=== PATIENT | female | born 1985 | race Caucasian/White ===

== ENCOUNTER 2021-12-12 09:01 | Day surgery (SDC) | payer OTHER, SELFPAY ==
[2021-12-05 15:18] VITALS: BMI 24.5
--- NOTE | 2021-12-11 09:54 | HO.ANESPROP2 ---
Documented by User: Richelle Castro NP 12/11/21 09:55 HPI - Anesthesia Eval Consult details Narrative: 36yo F for Left Lateral and medial Eye Muscle rectus Resection,left inferior oblique Medically cleared [facility] Past Medical History Medical History (Updated 12/05/21 @ 14:45 by Yamile Sebastian, RN) Asthma Chronic right maxillary sinusitis History of herpes genitalis History of syncope Horseshoe kidney Renal calculus Surgical History Surgical History (Updated 12/05/21 @ 14:45 by Yamile Sebastian, RN) History of bilateral salpingectomy History of shoulder surgery Social History Social History Patient Tobacco Use Status: Never used Tobacco Use of substances other than those prescribed or required for medical reasons: No Are you DNR?: No Advance Directives: No Advance Directives Information Provided: Yes Recently lost weight without trying: No Nutrition Risks: No Nutritional Risk Meds Allergies Allergy/AdvReac Type Severity Reaction Status Date / Time No Known Allergies Allergy Verified 12/05/21 14:46 Home Medications Medication Instructions Recorded Confirmed Last Taken Type No Known Home Meds 12/05/21 12/05/21 Unknown History Exam Exam Date and Time: December 11, 2021 0954 Height,Weight and Vital Signs: Height 5 ft 4 in Weight 64.864 kg Assessment and Plan Assessment Anesthesia Assessment: Chart Reviewed Documented by User: Eliza Odonnell MD 12/12/21 13:48 [facility] Past Medical History Medical History (Updated 12/05/21 @ 14:45 by Yamile Sebastian RN) Asthma Chronic right maxillary sinusitis History of herpes genitalis History of syncope Horseshoe kidney Renal calculus Family History Family history of problems with anesthesia: No Surgical History Surgical History (Updated 12/05/21 @ 14:45 by Yamile Sebastian, RN) History of bilateral salpingectomy History of shoulder surgery History of Problems with Anesthesia: No Social History Social History Patient Tobacco Use Status: Never used Tobacco Use of substances other than those prescribed or required for medical reasons: No Are you DNR?: No Advance Directives: No Advance Directives Information Provided: Yes Recently lost weight without trying: No Nutrition Risks: No Nutritional Risk Meds Allergies Allergy/AdvReac Type Severity Reaction Status Date / Time No Known Allergies Allergy Verified 12/05/21 14:46 Home Medications Medication Instructions Recorded Confirmed Last Taken Type No Known Home Meds 12/05/21 12/05/21 Unknown History Exam Airway Mallampati Class: I TM Dist: >3cm Neck ROM: Full Assessment and Plan Assessment Anesthesia Assessment: Anesthesia Plan Discussed Final Anesthetic Review Family History of Problems with Anesthesia: No History of Problems with Anesthesia: No NPO: Yes ASA Class: I Final Preanesthetic Review: No Changes in Pt Med Stat, Meds/Allgs Chart Reviewed, Consent Obtained/Reviewed and Anes Risks/Benef Reviewed Patient Risk: Low Procedure Risk: Low Anesthetic Plan Anesthetic Plan: GA Disposition: Standard PACU
[2021-12-12] VITALS (14 sets, daily range): BP systolic 94–116; BP diastolic 53–81; PULSE 50–94; RESP 10–18; TEMP 36.4–37.1; O2SAT 99–100; BMI 24.3
[2021-12-12] MEDS: Lactated Ringers 1,000 ML 100 ML IVCONT (11:15)
[2021-12-12] MEDS: fentaNYL citrate/PF 100 MCG/2 ML VIAL 50 MCG IVPUSH ×2 (14:07→14:27)
[2021-12-12] MEDS: Acetaminophen 325 MG TABLET 650 MG PO (14:08)
--- NOTE | 2021-12-12 14:44 | HO.OPHTHAL ---
Ophthalmology Operative Note Date of Service: 12/12/21 Narrative: Diagnosis left exotropia and inferior oblique overaction. Procedure 1 resection of left medial rectus muscle 4 mm 2. Recession of left lateral rectus muscle 5 mm 3. Recession of left inferior oblique muscle. Surgeon Dr. Smith. Anesthesia general. Complications none. The patient was brought to the operating room placed under general anesthesia. The patient's left eye was prepped and draped in the usual sterile ophthalmic fashion. A lid speculum was placed in the left eye and an incision was made at bare sclera in the inferotemporal fornix. The lateral and inferior rectus muscles were placed on large muscle hooks and the inferior oblique carefully identified and grasped with 2 small tenotomy hooks. The muscle was then transferred to the large muscle hooks and grasped near its insertion with a curved mosquito. The muscle was then disinserted from the globe and reattached to a position 4 mm posterior and 2 mm temporal to the temporal insertion of the inferior rectus muscle. The lateral rectus muscle was then hooked and secured with a double-armed Vicryl suture. The muscle was then disinserted the globe and reattached to a position 5 mm behind the original insertion. Conjunctiva was closed with interrupted Vicryl sutures. An incision was made at bare sclera in the inferior nasal fornix. The medial rectus muscle was hooked and secured at its insertion with a Hollister muscle clamp. A 4 mm resection was marked off with cautery and then secured with a double-armed Vicryl suture. The distal muscle was resected and the resection point drawn forward to the original insertion using the Vicryl suture. Conjunctiva was closed with interrupted Vicryl sutures. The patient was then awoken from general anesthesia and discharged to postoperative recovery in good condition.
[2021-12-12] MEDS: ondansetron HCL 4 MG/2 ML VIAL IVPUSH (15:15)
[2021-12-12] MEDS: oxyCODONE HCl Immed Release 5 MG TABLET PO (16:20)
== END 2021-12-12 16:50 | disposition home or self-care (01) ==
PROVIDERS: PCP Internal Medicine; Visit Provider Ophthalmology
PROC: (CPT 67311; principal; 2021-12-12 10:40)
DX: H50.112 Monocular exotropia, left eye (principal); J45.909 Unspecified asthma, uncomplicated; J32.0 Chronic maxillary sinusitis
CPT/HCPCS: 67311; J1100; J1885; J2250; J2405; J2550; J3010

== ENCOUNTER 2025-02-22 13:12 | Outpatient (AMB) | payer OTHER, SELFPAY ==
--- NOTE | 2025-02-22 13:15 | A.OFFVIS_ITS ---
Intake Visit Reasons: Follow up migrane Allergies No Known Allergies Allergy (Verified 12/05/21 14:46) HPI Comments Details: 39 years old woman with migraine headaches. For control, she tried topiramate and propranolol without relief. Now she was on verapamil. She is presenting with a request for medication refills. She has been managing migraines with Somatriptan, which has provided symptom relief. Additionally, she is currently taking Verapamil for hypertension, which has resulted in improved condition management when administered twice daily. [facility] Medical History (Updated 02/22/25 @ 13:18 by Jono Wood MD) Asthma History of herpes genitalis History of syncope Chronic right maxillary sinusitis Renal calculus Horseshoe kidney Surgical History (Updated 12/05/21 @ 14:45 by Yamile Sebastian RN) History of bilateral salpingectomy History of shoulder surgery Social History Patient Tobacco Use Status: Never used Tobacco Review of Systems Narrative Constitutional:?No fever, chills, fatigue, weight loss, or night sweats. HEENT:?No headache, vision changes, hearing loss, nasal congestion, sore throat. Neurological:?No dizziness, syncope, seizures, numbness, tingling, weakness, tremors, memory loss. Psychiatric:?No anxiety, depression, mood swings, sleep disturbance, or hallucinations. Endocrine:?No heat/cold intolerance, polydipsia, polyuria, or hair/skin changes. Hematologic/Lymphatic:?No easy bruising, bleeding, or lymphadenopathy. Integumentary (Skin):?No rash, lesions, itching, or color changes. ? Physical Exam Neuro Other: Mental Status: Alert and oriented to person, place, and time. Normal attention. Normal spontaneous speech, fluency, and comprehension. No obvious issues with mood and memory. Affect is appropriate. Cranial Nerves: CN II: Visual tovar full to confrontation, visual acuity intact. CN III, IV, : Pupils equal, round, reactive to light and accommodation. Extraocular movements are normal. CN V: Facial sensation is normal. CN VII: Facial movements symmetrical. CN VIII: Hearing intact to bedside conversation is normal. CN IX, X: Palate elevates symmetrically. CN XI: Shoulder shrug and head turn symmetrical. CN XII: Tongue midline without atrophy or fasciculations. Motor: Bulk and tone normal in all extremities. No significant muscle weakness in arms and legs. No drift. Reflexes: Deep tendon reflexes 2+ and symmetric. Plantar response down-going bilaterally. Coordination: [id number]-[id number] and [id number] testing normal. No dysmetria. Gait and Station: No obvious gait abnormality. No ataxia or instability. Extrapyramidal: Full facial expressions and blinking. No rigidity. Movements are appropriate with no tremor or abnormality. Speech: Normal; no dysarthria or tremor. Assessment & Plan Assessment & Plan (1) Migraine without aura: Comment: Meds tried: Topiramate, sumatriptan, propranolol. Code(s): G43.009 - Migraine without aura, not intractable, without status migrainosus Category: Medical Qualifiers: Status migrainosus presence: without status migrainosus Intractability: not intractable Qualified Code(s): G43.009 - Migraine without aura, not intractable, without status migrainosus Plan Impression: Migraine without aura Recommendations: 1. Verapamil 40 mg 1 tablet twice a day 2. Sumatriptan 50 mg 1 a day as needed Medications: New verapamil 40 mg PO BID 180 tabs 1RF sumatriptan succinate 50 mg orally one a day as needed; 10 tabs 5RF Coding Level of Care Code Est Pt Level 4 (81646) Diagnoses Migraine without aura and without status migrainosus, not intractable G43.009 Status migrainosus presence: without status migrainosus Intractability: not intractable
== END 2025-02-22 13:20 | disposition home or self-care (01) ==
LOC: HO.HSM 13:13
PROVIDERS: PCP Internal Medicine; Visit Provider Psychiatry & Neurology Neurology
DX: G43.009 Migraine without aura, not intractable, without status migrainosus (principal)
CPT/HCPCS: 99214